=== PATIENT | male | born 1940 | race Caucasian/White ===

== ENCOUNTER → 2021-01-18 | Outpatient (CLI) | payer MEDICARE, OTHER ==
[~2021-01-18] MED LIST: ADVAIR 250/501 EA INH; ALDACTONE25 M1 PO; AMIODARONE HCL100 M1 PO; ASPIRIN CHEWABL81 MG PO; ASPIRIN81 M1 PO; BRILINTA90 M1 PO; CARVEDILOL12.5 MG PO; CHEWABLE VITE1 CTB PO; CLOPIDOGREL75 MG PO; COLACE100 MG PO; COZAAR100 MG PO; COZAAR25 M1 PO; FINASTERIDE5 M1 PO; FINASTERIDE5 MG PO; LASIX40 MG PO; LIPITOR40 MG PO; LIPITOR80 MG PO; LOPRESSOR25 MG PO; MAGNESIUM-VIT1 EACH PO; MELATONIN3 MG PO; MILK OF MA400 MG/5 M PO; OMEGA 3-6-9 11200 MG PO; OXYCODONE AND A1 TA6 PO; PREDNISONE5 MG PO; PROSCAR5 M1 PO; SYMBICORT1 AE1 INH; TELMISARTAN80 MG PO; TYLENOL325 M1 PO; VITAMIN D50000 I3 PO; XANAX0.25 MG PO
== END | disposition home or self-care (01) ==
LOC: RESCLI 08:29
PROVIDERS: ATTEND Family Medicine
DX: I50.22 Chronic systolic (congestive) heart failure (principal); E78.2 Mixed hyperlipidemia; F41.9 Anxiety disorder, unspecified; N40.0 Benign prostatic hyperplasia without lower urinary tract symptoms; I25.10 Atherosclerotic heart disease of native coronary artery without angina pectoris; Z79.899 Other long term (current) drug therapy; Z90.49 Acquired absence of other specified parts of digestive tract

== ENCOUNTER → 2021-07-19 | Outpatient (CLI) | payer MEDICARE, OTHER | END | disposition home or self-care (01) | LOC: RESCLI 07-18 04:39 | PROVIDERS: ATTEND Family Medicine | DX: E11.9 Type 2 diabetes mellitus without complications (principal); N40.0 Benign prostatic hyperplasia without lower urinary tract symptoms; I25.10 Atherosclerotic heart disease of native coronary artery without angina pectoris; I50.22 Chronic systolic (congestive) heart failure; E78.2 Mixed hyperlipidemia; F41.9 Anxiety disorder, unspecified; Z79.899 Other long term (current) drug therapy ==

== ENCOUNTER → 2021-12-26 | Outpatient (CLI) | payer MEDICARE, OTHER | END | disposition home or self-care (01) | LOC: RESCLI 02:32 | PROVIDERS: ATTEND Internal Medicine | DX: I50.22 Chronic systolic (congestive) heart failure (principal); F41.9 Anxiety disorder, unspecified; I25.10 Atherosclerotic heart disease of native coronary artery without angina pectoris; E11.9 Type 2 diabetes mellitus without complications; N40.0 Benign prostatic hyperplasia without lower urinary tract symptoms; E78.2 Mixed hyperlipidemia; Z90.49 Acquired absence of other specified parts of digestive tract; Z98.890 Other specified postprocedural states; Z82.49 Family history of ischemic heart disease and other diseases of the circulatory system; Z79.899 Other long term (current) drug therapy ==